=== PATIENT | female | born 1965 | race Caucasian/White ===

== ENCOUNTER 2017-10-08 11:00 | Outpatient (RCR) | payer OTHER, SELFPAY ==
--- NOTE | 2017-10-08 12:15 | PT.OIE ---
Current Diagnoses Benign paroxysmal vertigo, left ear (10/08/17) Dizziness and giddiness (10/08/17) Provider Visit Care Team Role Provider Type Steve Doss MD Primary Care Provider Physician Specialty: Internal Medicine Address: [address] [place] [address], [id number] Email: [place] MD Attending Provider Physician Specialty: Ear, Nose, Throat Address: [address] [place] [address], [id number] Email: Physical Therapy Initial Evaluation PT-OP-A Visit Information Start: 10/08/17 11:57 Freq: Status: Active Protocol: Document 10/08/17 11:15 DCW (Rec: 10/08/17 12:15 DCW [id number]) Out-Patient Physical Therapy Visit Information Visit Information Visit Type Initial Evaluation Visit Start Time 11:15 Visit Stop Time 11:50 Total Visit Minutes 35 Visit Number 1 Number of SOLAR PANEL TECHNICIAN Visits 0 Evaluation Information Evaluation Date 10/08/17 PT-OP-B Current Condition Start: 10/08/17 11:57 Freq: Status: Active Protocol: Document 10/08/17 11:15 DCW (Rec: 10/08/17 12:15 DCW [id number]) Current Condition History of Current Condition Onset Date s/p 2 months Current Complaints History of positional dizziness History of Current Condition Pt is a 51 year old female complaining of a two month history of motion-induced vertigo. Pt reports episodes last 15 seconds. Symptoms are provoked by getting into or out of bed, or rolling in bed. 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 After her most recent episode of vertigo, she again went to [facility] and had an Sheila maneuver performed. Per pt, her symptoms were gone following this maneuver, however she wanted to keep this appointment with Physical Therapy to discover if there was something she could do to prevent recurrence. Pt denies recent hearing changes, tinnitus, diplopia, dysarthria , discoordination, or decreased mentation/ consciousness. Pt reports symptoms are waxing/waning in nature. Pt denies hx of HTN, hyperlipidemia, diabetes, arrhythmia, head trauma, seizure, migraines, back/neck problems, CVA, anxiety/panic disorders, depression, or excessive smoking or drinking. Prior Treatments and Tests Sheila maneuver Treatment Goals Patient/Caregiver Goals Learn any home treatment or preventative techniques Prior Functional Status Baseline Function- ADL's Independent Baseline Function- Mobility Independent Current Functional Impairments (Reported) Functional Limitations- ADL's previous position-dependent vertigo PT-OP-C Subjective Start: 10/08/17 11:57 Freq: Status: Active Protocol: Document 10/08/17 11:15 DCW (Rec: 10/08/17 12:15 DCW [id number]) Patient Questionnaires ABC- Activity Specific Balance Confidence Scale ABC Score 94.67% ABC Functional Impairment 1 to <20% Impaired (Score 81- 99) Dizziness Handicap Inventory DHI Score 20% DHI Functional Impairment 20 to 39% Impaired (Score 20- 39) PT-OP-O Vestibular Start: 10/08/17 11:57 Freq: Status: Active Protocol: Document 10/08/17 11:15 DCW (Rec: 10/08/17 12:15 DCW [id number]) Vestibular Assessment Screening Tests Vestibular Artery Screen Negative Sharp-Kunal Test Negative Auditory Tests Mendoza Test Negative Rinne Test Negative Air Conduction Results Equal Visual Testing Smooth Pursuits Horizontal Negative Saccades Horizontal Negative Saccades Vertical Negative Gaze Evoked Nystagmus With Fixation Negative Gaze Evoked Nystagmus Without Fixation Negative Heave Test Negative Thrust Head Negative Head Shake Negative Spontaneous Nystagmus Negative Vestibulo-Ocular Reflex Cancellation Negative Positional Testing Afton-Hallpike Negative Left Negative Right Rolling Test Negative Left Negative Right Supine to Sit Negative Sit to Supine Negative PT-OP-T Assessment and Plan Start: 10/08/17 11:57 Freq: Status: Active Protocol: Document 10/08/17 11:15 DCW (Rec: 10/08/17 12:15 DCW [id number]) Physical Therapy Assessment Rehab Potential Rehabilitation Potential Excellent Evaluation Complexity Number of Personal Factors/Comorbidities 0 Number of Body Systems Impaired 1-2 Clinical Presentation at Evaluation Stable Impairments Impairments Vestibular Assessment Summary Assessment Pt presented with an entirely negative vestibular evaluation , and no complaints of any symptoms since her Sheila maneuver at [facility] one and a half months ago. Pt was thankful for education, and she was given a self-Sheila maneuver in case of a recurrence. Unfortunately, there are no good preventative measures for BPPV, and with a recurrence rate of 50% within five years of treatment, she may require further treatment in the future. At this time, however, there is no indication for further skilled therapy treatment. Physical Therapy Plan Frequency and Duration Frequency of Treatment discharge Duration of Treatment 1 day Plan of Care Start Date 10/08/17 Plan of Care End Date 10/09/17 Discharge Physical Therapy Discharge Comments Negative evaluation, no complaints of symptoms, limitations, or restrictions.
--- NOTE | 2017-10-08 12:15 | PT.OPPOC ---
Current Diagnoses Benign paroxysmal vertigo, left ear (10/08/17) Dizziness and giddiness (10/08/17) Provider Visit Care Team Role Provider Type Steve Doss MD Primary Care Provider Physician Specialty: Internal Medicine Address: [address] [place] [address], [id number] Email: [place] MD Attending Provider Physician Specialty: Ear, Nose, Throat Address: [address] [place] [address], [id number] Email: Plan Of Care PT-OP-T Assessment and Plan Start: 10/08/17 11:57 Freq: Status: Active Protocol: Document 10/08/17 11:15 DCW (Rec: 10/08/17 12:15 DCW [id number]) Physical Therapy Assessment Rehab Potential Rehabilitation Potential Excellent Evaluation Complexity Number of Personal Factors/Comorbidities 0 Number of Body Systems Impaired 1-2 Clinical Presentation at Evaluation Stable Impairments Impairments Vestibular Assessment Summary Assessment Pt presented with an entirely negative vestibular evaluation , and no complaints of any symptoms since her Sheila maneuver at [facility] one and a half months ago. Pt was thankful for education, and she was given a self-Sheila maneuver in case of a recurrence. Unfortunately, there are no good preventative measures for BPPV, and with a recurrence rate of 50% within five years of treatment, she may require further treatment in the future. At this time, however, there is no indication for further skilled therapy treatment. Physical Therapy Plan Frequency and Duration Frequency of Treatment discharge Duration of Treatment 1 day Plan of Care Start Date 10/08/17 Plan of Care End Date 10/09/17 Discharge Physical Therapy Discharge Comments Negative evaluation, no complaints of symptoms, limitations, or restrictions. Plan of Care Dates Plan of Care Start Date 10/08/17 Plan of Care End Date 10/09/17 Please Sign and Return: I have reviewed this Plan of Care and certify that the skilled therapy services above are required to meet the patient?s needs. Physician Signature Date Printed Name and Credentials Clinical Instructor Signature Printed Name and Credentials
== END 2017-10-15 09:23 ==
LOC: PHYS 11:00
PROVIDERS: PCP Internal Medicine; Visit Provider Otolaryngology
DX: H81.12 Benign paroxysmal vertigo, left ear (principal); R42 Dizziness and giddiness
CPT/HCPCS: 97161

== ENCOUNTER → 2019-08-12 17:24 | Outpatient (CLI) | payer OTHER, SELFPAY ==
[2019-08-12 17:32] LABS: Bacteria Urine None Seen; RBC Urine None Seen (0-5/HPF); WBC Urine None Seen (0-5/HPF)
[2019-08-12 17:57] LABS: Appearance Urine UA CLEAR; Bilirubin Urine UA NEGATIVE (NEGATIVE); Color Urine UA YELLOW; Glucose Urine UA NEGATIVE (Negative); Ketones Urine UA NEGATIVE (NEGATIVE); Leukocyte Esterase Urine UA NEGATIVE (NEGATIVE); Nitrite Urine UA NEGATIVE (Negative); Occult Blood Urine UA NEGATIVE (Negative); Protein Urine UA NEGATIVE (Negative); Urobilinogen Urine UA 0.2 E.U./dL (0.2)
[2019-08-12 18:07] LABS: Urine Comments Microscopic Normal
== END ==
PROVIDERS: PCP Internal Medicine; Referring Provider Physician Assistant; Visit Provider Physician Assistant
DX: R39.15 Urgency of urination (principal)
CPT/HCPCS: 81001; 87086

== ENCOUNTER → 2023-01-21 10:04 | Outpatient (CLI) | payer OTHER, SELFPAY ==
--- NOTE | 2023-01-21 | DI.MG.S_ITS ---
BILATERAL DIGITAL SCREENING MAMMOGRAM 3D/2D WITH CAD: 01/21/2023 CLINICAL: Routine screening. Comparison is made to exams dated: 01/20/2022 mammogram, 12/28/2020 mammogram, 04/02/2017 mammogram, and 12/22/2018 mammogram - [facility]. There are scattered areas of fibroglandular density in both breasts (category b / 25%-50% glandular tissue). Current study was also evaluated with a Computer Aided Detection (CAD) system. No significant masses, calcifications, or other findings are seen in either breast. There has been no significant interval change. IMPRESSION: NEGATIVE There is no mammographic evidence of malignancy. A 1 year screening mammogram is recommended. Based on the Tyrer Cuzick model (a risk assessment model) the patient's lifetime risk is 7.7% and her 10 year risk is 3.0%. According to the ACR, ACS, and NCCN guidelines, an annual breast MRI exam along with mammogram is recommended if the patient's lifetime risk is 20% or greater. This exam was interpreted at Station ID: [id number]. NOTE: For mammograms, a report in lay terms will be sent to the patient. Approximately 15% of breast malignancies will not be visualized mammographically. In the management of a palpable breast mass, a negative mammogram must not discourage biopsy of a clinically suspicious lesion. Electronically Signed By: Osman galvan/esther:01/21/2023 13:19:48 letter sent: Normal Exam ACR BI-RADS Category 1: Negative [id number]
== END ==
PROVIDERS: PCP Physician Assistant; Referring Provider Physician Assistant; Visit Provider Physician Assistant
DX: Z12.31 Encounter for screening mammogram for malignant neoplasm of breast (principal)
CPT/HCPCS: 77063; 77067

== ENCOUNTER → 2024-01-29 09:14 | Outpatient (CLI) | payer OTHER, SELFPAY ==
--- NOTE | 2024-01-29 09:18 | DI.MG.S_ITS ---
BILATERAL DIGITAL SCREENING MAMMOGRAM 3D/2D WITH CAD: 01/29/2024 CLINICAL: Routine screening. Comparison is made to exams dated: 01/21/2023 mammogram - [facility], 01/20/2022 mammogram, and 12/28/2020 mammogram - [facility]. There are scattered areas of fibroglandular density (category b / 25%-50% glandular tissue). Current study was also evaluated with a Computer Aided Detection (CAD) system. No significant masses, calcifications, or other findings are seen in either breast. There has been no significant interval change. IMPRESSION: NEGATIVE There is no mammographic evidence of malignancy. A 1 year screening mammogram is recommended. Based on the Tyrer Cuzick model (a risk assessment model) the patient's lifetime risk is 7.6% and her 10 year risk is 3.0%. According to the ACR, ACS, and NCCN guidelines, an annual breast MRI exam along with mammogram is recommended if the patient's lifetime risk is 20% or greater. This exam was interpreted at Station ID: [id number]. NOTE: For mammograms, a report in lay terms will be sent to the patient. Approximately 15% of breast malignancies will not be visualized mammographically. In the management of a palpable breast mass, a negative mammogram must not discourage biopsy of a clinically suspicious lesion. Electronically Signed By: Dennis lane/esther:01/29/2024 11:48:13 letter sent: Normal Exam ACR BI-RADS Category 1: Negative
== END ==
LOC: MAMMO 09:17
PROVIDERS: PCP Physician Assistant; Referring Provider Physician Assistant; Visit Provider Physician Assistant
DX: Z12.31 Encounter for screening mammogram for malignant neoplasm of breast (principal)
CPT/HCPCS: 77063; 77067

== ENCOUNTER → 2024-09-27 15:15 | Outpatient (CLI) | payer OTHER, SELFPAY ==
--- NOTE | 2024-09-27 15:17 | DI.NM.S_ITS ---
PROCEDURE: NM EXERCISE TREADMILL NON NUC COMPARISON: None. INDICATIONS: CHEST PAIN FINDINGS: The patient exercised for 7 minutes and 18 seconds, reaching 98% of maximum predicted heart rate. Appropriate BP response to exercise. Above average exercise tolerance (10.1METs, [place] -7%). No angina, no ectopy, and no diagnostic ST changes during exercise or recovery. Patient had lightheadedness with exercise that resolved by the end of recovery. IMPRESSION: Low risk, normal treadmill ECG only stress test from inducible ischemia standpoint. Above average exercise tolerance ([place] -7%). Lightheadedness during the study could be from dehydration. Dictated by: Tu Grider MD on 09/27/2024 at 16:43 Approved by: Tu Grider MD on 09/27/2024 at 16:45
== END ==
LOC: NUCM 15:17
PROVIDERS: PCP Physician Assistant; Referring Provider Physician Assistant; Visit Provider Internal Medicine Cardiovascular Disease
DX: R07.9 Chest pain, unspecified (principal)
CPT/HCPCS: 93017

== ENCOUNTER 2024-11-29 13:21 | Emergency (ER) | payer OTHER, SELFPAY ==
[2024-11-29] VITALS (9 sets, daily range): BP systolic 98–106; BP diastolic 53–55; PULSE 52–68; RESP 18; TEMP 36.8; O2SAT 94–98; BMI 29.0
--- NOTE | 2024-11-29 13:31 | DI.RAD.S_ITS ---
PROCEDURE: XR SHOULDER RT MIN 2V INDICATIONS: fall/shoulder pain TECHNIQUE: 2 views of the shoulder were acquired. COMPARISON: None. FINDINGS: Bones: Acute mildly comminuted, predominantly transverse fracture of the humeral surgical neck with comminuted fracture fragments of the greater tuberosity. No dislocation. Mild glenohumeral joint degenerative arthrosis.. No suspicious bony lesions. Visualized ribs appear intact. Soft tissues: No suspicious soft tissue calcifications. IMPRESSION: Acute, mildly comminuted, predominantly transverse fracture of the humerus stir surgical neck involves the greater tuberosity and the medial surgical neck. Dictated by: Curry Madera M.D. on 11/29/2024 at 14:23 Approved by: Curry Madera M.D. on 11/29/2024 at 14:25
--- NOTE | 2024-11-29 13:34 | ED.FALL ---
HPI - Fall General Chief Complaint: Fall Stated Complaint: Fall off back of truck right shoulder pain. Time Seen by Provider: 11/29/24 13:34 Source: patient Mode of arrival: EMS History of Present Illness HPI Narrative: 59-year-old female no significant past medical history comes into the ED from home via EMS for evaluation of right shoulder pain. States that she was in her truck stepping off because they were currently moving states that she landed directly on her right shoulder denies head strike denies any other injuries, patient was evaluated by EMS got 100 mcg of IV fentanyl 4 mg Zofran and was also given 1000 mg p.o. Tylenol. At time of my evaluation patient stating that she just feels nauseous, she states that this was after they gave her all of the pain medication. She is not on any blood thinners denies any other issues/injuries or concerns at this time. Related Data Home Medications ?Medication ?Instructions ?Recorded ?Confirmed cholecalciferol (vitamin D3) 25 25 mcg PO DAILY 08/11/24 08/11/24 mcg (1,000 unit) capsule vitamins A,C,J-efqc-pktciv 4,296 1 cap PO BID 08/11/24 08/11/24 mcg-226 mg-90 mg capsule (PreserVision AREDS) Previous Rx's ?Medication ?Instructions ?Recorded pantoprazole 40 mg tablet,delayed 40 mg PO DAILY #30 tabs 08/11/24 release ondansetron 4 mg disintegrating 4 mg PO Q8H PRN nausea and 11/29/24 tablet vomiting 1 week #21 tabs oxycodone-acetaminophen 5 mg-325 1 tab PO Q8H PRN pain 3 days #9 11/29/24 mg tablet (Percocet) tabs Allergies Allergy/AdvReac Type Severity Reaction Status Date / Time No Known Drug Allergies Allergy Unverified 08/11/24 08:48 Review of Systems Review of Systems Narrative: General: Denies fever, chills, weight loss HEENT: Denies headache, eye drainage, eye irritation, head trauma, sore throat, voice change Cardiovascular: Denies any chest pain, palpitations, tachycardia Respiratory: Denies any shortness of breath, cough, wheeze, stridor GI/: Denies any abdominal pain, nausea, vomiting, diarrhea, bright red blood per rectum, melanotic stools, urinary frequency, urinary retention, dysuria, hematuria MSK: Positive right shoulder pain Skin: Denies any rashes, lesions, discoloration Neuro: Denies any headache, lightheadedness, dizziness, fainting, weakness Psych: Denies SI/HI Patient History Social History Smoking Status: Never smoker Smoking Status: Never smoker Exam Narrative Exam Narrative: General: Cooperative, well-developed, not in acute distress HEENT: Normocephalic, atraumatic, PERRLA, normal sclera, eyelids normal Neck: Active full range of motion, atraumatic Chest: Normal to inspection, negative crepitus, no overlying erythema ecchymosis Respiratory: Normal respiratory effort, not in acute respiratory distress, clear to auscultation bilaterally negative cough, wheeze, tachypnea, rhonchi, rales Cardiology: Regular rate rhythm negative gallop, murmur, rubs GI/: No tenderness to palpation, soft, non rigid, normal to inspection, exam deferred MSK: Patient with tenderness to palpation of the right shoulder decreased active passive range of motion secondary to pain otherwise neurovascularly intact Skin: No rashes or lesions noted Neuro: Alert awake oriented x3, moves all 4 extremities spontaneously, cranial nerves intact, able to answer all questions appropriately follows commands appropriately Psych: Cooperative, negative suicidal or homicidal ideations Initial Vital Signs Initial Vital Signs: Vital Signs Pulse Rate 68 11/29/24 13:23 Pulse Oximetry 95 11/29/24 13:23 Course Orders Ordered: ED Orders 11/29/24 13:31 XR shoulder RT 2+ views Stat 11/29/24 13:39 XR elbow RT 2V Stat Discontinued Medications Sodium Chloride (Normal Saline 0.9%) 1,000 mls @ 1,000 mls/hr IV BOLUS ONE Stop: 11/29/24 14:35 Last Admin: 11/29/24 13:47 Dose: 1,000 mls/hr Documented By: YULIANA Morphine Sulfate (Morphine 4 Mg/Ml Inj) 4 mg IV NOW ONE Stop: 11/29/24 14:26 Last Admin: 11/29/24 14:33 Dose: 4 mg Documented By: YULIANA Ondansetron HCl (Ondansetron 4 Mg/2 Ml Inj) 4 mg IV NOW ONE Stop: 11/29/24 13:37 Last Admin: 11/29/24 13:48 Dose: 4 mg Documented By: YULIANA Vital Signs Vital signs: Vital Signs - 8 hr 11/29/24 13:23 11/29/24 13:24 11/29/24 13:24 Temperature Pulse Rate 68 68 Respiratory Rate Blood Pressure 106/55 L Pulse Oximetry 95 95 Oxygen Delivery Method 11/29/24 13:26 11/29/24 13:26 11/29/24 13:28 Temperature 98.3 F Pulse Rate 64 66 Respiratory Rate 18 Blood Pressure 105/53 L 106/55 L Pulse Oximetry 95 95 Oxygen Delivery Method Room Air 11/29/24 13:30 11/29/24 14:00 11/29/24 14:01 Temperature Pulse Rate 67 52 L 54 L Respiratory Rate Blood Pressure Pulse Oximetry 94 96 96 Oxygen Delivery Method 11/29/24 14:01 11/29/24 14:30 11/29/24 14:31 Temperature Pulse Rate 54 L Respiratory Rate Blood Pressure 98/53 L 100/53 L Pulse Oximetry 96 Oxygen Delivery Method 11/29/24 14:31 Temperature Pulse Rate 54 L Respiratory Rate Blood Pressure Pulse Oximetry 98 Oxygen Delivery Method Room Air MDM - Fall MDM Narrative Medical decision making narrative: 59-year-old female no past medical history presenting via EMS from home for evaluation of right shoulder pain. She states that she was on a truck stepping backwards due to the fact that she is currently moving and states that she landed directly onto her right shoulder. Had pain immediately. On exam she is neurovascularly intact has decreased active passive range of motion of the right shoulder secondary to pain otherwise no other tenderness to palpation of any bony prominences. Patient did receive 100 mcg of IV fentanyl 4 mg of IV Zofran and 1000 mg of p.o. Tylenol prior to arrival, she states that the medication made her nauseous and this is her primary concern at time of evaluation. Patient had x-ray of her right shoulder does show a right proximal humerus fracture. Patient is neurovascularly intact, she will be placed in a sling and instructed to follow up with Orthopedic surgery in outpatient setting, she verbalized understanding of this and agrees to being discharged home with outpatient follow up Discharge Plan Departure Patient Disposition: Home Clinical Impression: Fracture of proximal end of humerus Instructions: How to Use a Sling Activity Restrictions/Additional Instructions: Please follow up with Orthopedic surgery in outpatient setting Please read the discharge instructions sheet carefully and bring all papers to all doctor follow-up visits, as it may contain information that your doctor may want to see. Disease processes change and evolve, if your symptoms worsen or if you develop any new symptoms that are concerning to you please return for evaluation. Your evaluation today does not show any evidence of any life-threatening/serious illnesses requiring admission to the hospital or surgery. Please follow-up with your doctor for re-evaluation in approximately 1 day. Seek immediate medical attention for any worrisome symptoms. *If you do not have a primary care provider please contact the [facility] Resource line at [phone]. They will ask some questions about your medical history and help get you set up with a doctor in the community. Prescriptions: New oxycodone-acetaminophen [Percocet] 5-325 mg tablet 1 tab PO Q8H PRN (Reason: pain) 3 Days Qty: 9 0RF ondansetron 4 mg tablet,disintegrating 4 mg PO Q8H PRN (Reason: nausea and vomiting) 7 Days Qty: 21 0RF No Action cholecalciferol (vitamin D3) 25 mcg (1,000 unit) capsule 25 mcg PO DAILY PreserVision AREDS 4,296 mcg-226 mg-90 mg capsule 1 cap PO BID pantoprazole 40 mg tablet,delayed release (DR/EC) 40 mg PO DAILY Qty: 30 2RF Referrals: Chitra Gutiérrez PA-C [Primary Care Provider, Medical] Stand Alone Forms: Patient Portal/API
--- NOTE | 2024-11-29 13:39 | DI.RAD.S_ITS ---
PROCEDURE: XR ELBOW RT 2V INDICATIONS: pain s/p fall TECHNIQUE: 2 views of the elbow were acquired. COMPARISON: None. FINDINGS: Bones: No displaced fractures or dislocations. No suspicious bony lesions. Soft tissues: No suspicious soft tissue calcifications. IMPRESSION: No displaced fracture in nonstandard positioning. Dictated by: Curry Madera M.D. on 11/29/2024 at 14:25 Approved by: Curry Madera M.D. on 11/29/2024 at 14:26
[2024-11-29] MEDS: SODIUM CHLORIDE 0.9% 1,000 ML 1000 ML IV (13:47)
[2024-11-29] MEDS: ONDANSETRON 4 MG/2 ML INJ IV (13:48)
[2024-11-29] MEDS: MORPHINE 4 MG/ML INJ IV (14:33)
== END 2024-11-29 15:37 | disposition home or self-care (01) ==
PROVIDERS: Emergency Provider Student in an Organized Health Care Education/Training Program; PCP Physician Assistant
DX: S42.201A Unspecified fracture of upper end of right humerus, initial encounter for closed fracture (principal); W19.XXXA Unspecified fall, initial encounter
CPT/HCPCS: 73030; 73070; 96361; 96374; 96375; 99284; J2270; J2405